=== PATIENT | female | born 1945 | race Caucasian/White ===

== ENCOUNTER → 2018-02-02 | Outpatient (CLI) | payer MEDICARE, MEDICAID ==
[~2018-02-02] MED LIST: ALPR0.5T8 PO; CHOL2000 PO; DDAV2 PO; DOCU250C28 PO; ENTA200 PO; ESCI20TA PO; GABA-531 PO; MULT-1203 PO; RANI150T7 PO; SENN-175 PO; [UNRECOGNIZED DRUG - CODE] PO
[2018-02-02 11:10] VITALS: BP 88/45
== END | disposition home or self-care (01) ==
LOC: SRCNTR 10:57
PROVIDERS: ATTEND Internal Medicine Critical Care Medicine
DX: J96.11 Chronic respiratory failure with hypoxia (principal); G20 Parkinson's disease; F32.9 Major depressive disorder, single episode, unspecified; I10 Essential (primary) hypertension; E03.9 Hypothyroidism, unspecified; K21.9 Gastro-esophageal reflux disease without esophagitis; M19.90 Unspecified osteoarthritis, unspecified site
CPT/HCPCS: G0463

== ENCOUNTER 2018-04-11 01:40 | Inpatient (IN) | payer MEDICAID, MEDICARE ==
[~2018-04-11] VITALS: Ht 162.6 cm; Wt 87.1 kg
[2018-04-11] MEDS ORDERED: IPRATROPIUM BROMIDE 0.5 MG/2.5 ML NEB SOLUTION NEB ONE (01:45)
[2018-04-11] MEDS ORDERED: AZITHROMYCIN 500 MG/NS 250 ML IV ONE (01:45)
[2018-04-11] MEDS ORDERED: ALBUTEROL SULFATE 2.5 MG/0.5 ML NEB SOLUTION NEB ONE (01:45)
[2018-04-11] MEDS ORDERED: ACETAMINOPHEN 1000 MG/ISO-OSM 100 ML IV ONE (01:45)
[2018-04-11] MEDS ORDERED: CefTRIAXone SODIUM 1 GM in DEXTROSE 5%-WATER 10 ML IV ONE (01:45)
[2018-04-11] MEDS ORDERED: LEVO25TA9 PO (01:58)
[2018-04-11] MEDS ORDERED: SERT100T12 PO (01:58)
[2018-04-11] MEDS ORDERED: AUD NEB (01:58)
[2018-04-11] MEDS ORDERED: LIDO700A30 TP (01:58)
[2018-04-11] MEDS ORDERED: PANT40TA25 PO (01:58)
[2018-04-11] MEDS ORDERED: ZOLP10TA7 PO (01:58)
[2018-04-11] MEDS ORDERED: FLUT100B IH (01:58)
[2018-04-11] MEDS ORDERED: PIMA17TA PO (01:58)
[2018-04-11] MEDS ORDERED: GABA-533 PO (01:58)
[2018-04-11] MEDS ORDERED: LACT1CAP38 PO (01:58)
[2018-04-11] MEDS ORDERED: LAMO100 PO (01:58)
[2018-04-11] MEDS ORDERED: SODIUM CHLORIDE 0.9% 1,000 ML IV ONE (02:15)
[2018-04-11 02:20] LABS: BASOPHILS % (AUTO) 0.4 % (0.0-2.0); HEMOGLOBIN 11.9 g/dL (12.0-16.0); LYMPHOCYTES # (AUTO) 0.3 K/uL (1.0-4.8); MEAN CORPUSCULAR HGB CONC 33.1 G/dL (31.0-37.0); MEAN CORPUSCULAR VOLUME 85 fL (80-100); MONOCYTES # (AUTO) 0.2 K/uL (0.1-1.0); MONOCYTES % (AUTO) 4.7 % (2.0-9.0); NEUTROPHILS # (AUTO) 3.1 K/uL (1.8-7.7); NEUTROPHILS % (AUTO) 84.9 % (40.0-70.0); PLATELET COUNT (AUTO) 149 K/uL (150-450); RED BLOOD CELL COUNT(AUTO) 4.25 MIL/uL (4.00-5.20)
[2018-04-11 02:31] LABS: ANION GAP 6 mmol/L (8-16); CALCIUM, TOTAL 8.7 mg/dL (8.8-10.5); CARBON DIOXIDE 32 mmol/L (22-29); CHLORIDE 103 mmol/L (98-107); CREATININE 1.05 mg/dL (0.60-1.30); GLOMERULAR FILTR. RATE CALC 51 mL/min (>60); GLUCOSE,RANDOM 128 mg/dL (70-110); POTASSIUM 3.4 mmol/L (3.5-5.1); SODIUM SERUM 141 mmol/L (136-145); UREA NITROGEN, BLOOD 26 mg/dL (7-18)
[2018-04-11 02:38] LABS: ALANINE AMINOTRANSFERASE 14 U/L (12-78); ALKALINE PHOSPHATASE 78 U/L (46-116); ASPARTATE AMINOTRANSFERASE 17 U/L (15-37); BILIRUBIN,TOTAL 0.6 mg/dL (0.1-1.0); CREATINE KINASE, TOTAL 67 U/L (26-192); TOTAL PROTEIN, SERUM 6.6 g/dL (6.4-8.2)
[2018-04-11 02:40] LABS: APPEARANCE,URINE SLIGHTLY CLOUDY (CLEAR); BILIRUBIN,URINE NEGATIVE (NEGATIVE); GLUCOSE, URINE (UA) NEGATIVE (NEGATIVE); KETONES,URINE TRACE mg/dL (NEGATIVE); OCCULT BLOOD,URINE NEGATIVE (NEGATIVE); PROTEIN,URINE NEGATIVE (NEGATIVE)
[2018-04-11 02:41] LABS: LEUKOCYTE ESTERASE ,URINE NEGATIVE (NEGATIVE); NITRATE,URINE POSITIVE (NEGATIVE); UROBILINOGEN,URINE 0.2 mg/dL (<=1.0)
[2018-04-11 02:44] LABS: B-TYPE NATRIURETIC PEPTIDE 26 pg/mL (0-100)
[2018-04-11 03:23] LABS: BACTERIA,URINE Moderate /HPF (None Seen); RBC,URINE 0-2 /HPF (0-2)
[2018-04-11 03:24] LABS: SQUAMOUS EPITHELIAL CELL,UR Moderate /LPF (None Seen)
[2018-04-11 06:35] VITALS: BP 110/71
[2018-04-11 07:50] VITALS: BP 113/70
[2018-04-11] MEDS ORDERED: LEVOTHYROXINE SODIUM 25 MCG TABLET PO SCH (10:45)
[2018-04-11] MEDS ORDERED: IPRATROPIUM BROMIDE 0.5 MG/2.5 ML NEB SOLUTION NEB SCH (10:45)
[2018-04-11] MEDS ORDERED: PANTOPRAZOLE SODIUM 40 MG DR TABLET PO SCH (10:45)
[2018-04-11] MEDS ORDERED: ZOLPIDEM TARTRATE 5 MG TABLET PO PRN (10:45)
[2018-04-11] MEDS ORDERED: ONDANSETRON HCL 4 MG/2 ML VIAL IVP PRN (10:45)
[2018-04-11] MEDS ORDERED: 0.9% SODIUM CHLORIDE 10 ML SYRINGE IVP PRN (10:45)
[2018-04-11] MEDS: LamoTRIgine 100 MG TABLET PO SCH ×2 (10:45→23:53)
[2018-04-11] MEDS ORDERED: ALBUTEROL SULFATE 2.5 MG/0.5 ML NEB SOLUTION NEB SCH ×2 (10:45→13:00)
[2018-04-11] MEDS: IPRATROPIUM BROMIDE 0.5 MG/2.5 ML NEB SOLUTION NEB PRN (11:17)
[2018-04-11] MEDS: ALBUTEROL SULFATE 2.5 MG/0.5 ML NEB SOLUTION NEB PRN (11:17)
[2018-04-11 11:22] VITALS: BP 131/81
[2018-04-11] MEDS: HEPARIN SODIUM,PORCINE 5,000 UNITS/ML VIAL SQ SCH ×3 (11:25→23:53)
[2018-04-11] MEDS: ALPRAZolam 0.5 MG TABLET PO SCH ×2 (11:36→21:04)
[2018-04-11] MEDS: SENNA 187 MG TABLET PO SCH (11:36)
[2018-04-11] MEDS: DOCUSATE SODIUM 100 MG CAPSULE PO SCH ×2 (11:36→21:04)
[2018-04-11] MEDS: LIDOCAINE HCL 5% TRANSDERMAL PATCH TD SCH (13:11)
[2018-04-11] MEDS: IPRATROPIUM BROMIDE 0.5 MG/2.5 ML NEB SOLUTION NEB SCH ×2 (14:04→20:11)
[2018-04-11] MEDS: ALBUTEROL SULFATE 2.5 MG/0.5 ML NEB SOLUTION NEB SCH ×2 (14:04→20:11)
[2018-04-11] MEDS: SERTRALINE HCL 100 MG TABLET PO SCH (14:26)
[2018-04-11] MEDS: FLUTICASONE FUROATE 100 MCG/INH INHALER [14] IH SCH (14:27)
[2018-04-11 15:28] VITALS: BP 135/86
[2018-04-11] MEDS ORDERED: POTASSIUM CHLORIDE 20 MEQ ER TABLET PO PRN (15:45)
[2018-04-11] MEDS: LEVOTHYROXINE SODIUM 25 MCG TABLET PO SCH (15:51)
[2018-04-11] MEDS: GABAPENTIN 400 MG CAPSULE PO SCH ×2 (15:51→21:04)
[2018-04-11] MEDS: ACETAMINOPHEN 325 MG TABLET PO PRN (15:51)
[2018-04-11] MEDS ORDERED: CARBIDOPA/LEVODOPA 50-200 MG ER TABLET PO SCH (16:00)
[2018-04-11] MEDS: SODIUM CHLORIDE 0.9% 1,000 ML IV SCH (16:04)
[2018-04-11] MEDS: CARBIDOPA/LEVODOPA 25-100 MG ER TABLET PO SCH ×2 (17:38→21:04)
[2018-04-11 19:32] VITALS: BP 117/65
[2018-04-11] MEDS ORDERED: DOCUSATE SODIUM 250 MG CAPSULE PO SCH (21:00)
[2018-04-11] MEDS: -LIDODERM PATCH NOTE- MISC SCH (21:00)
[2018-04-11] MEDS: CefTRIAXone SODIUM 1 GM in DEXTROSE 5%-WATER 10 ML IV SCH (21:04)
[2018-04-11] MEDS: ZOLPIDEM TARTRATE 10 MG TABLET PO SCH (21:04)
[2018-04-12] VITALS (7 sets, daily range): BP systolic 93–139; BP diastolic 52–136
[2018-04-12] MEDS: IPRATROPIUM BROMIDE 0.5 MG/2.5 ML NEB SOLUTION NEB PRN (00:58)
[2018-04-12] MEDS: ALBUTEROL SULFATE 2.5 MG/0.5 ML NEB SOLUTION NEB PRN (00:58)
[2018-04-12] MEDS: IPRATROPIUM BROMIDE 0.5 MG/2.5 ML NEB SOLUTION NEB SCH ×4 (01:36→19:37)
[2018-04-12] MEDS: ALBUTEROL SULFATE 2.5 MG/0.5 ML NEB SOLUTION NEB SCH ×4 (01:36→19:37)
[2018-04-12] MEDS: AZITHROMYCIN 500 MG/NS 250 ML IV SCH (03:06)
[2018-04-12] MEDS: LEVOTHYROXINE SODIUM 25 MCG TABLET PO SCH (05:38)
[2018-04-12] MEDS: HEPARIN SODIUM,PORCINE 5,000 UNITS/ML VIAL SQ SCH ×2 (08:08→16:06)
[2018-04-12] MEDS: FLUTICASONE FUROATE 100 MCG/INH INHALER [14] IH SCH (08:10)
[2018-04-12] MEDS: LIDOCAINE HCL 5% TRANSDERMAL PATCH TD SCH (08:10)
[2018-04-12] MEDS: SODIUM CHLORIDE 0.9% 1,000 ML IV SCH (08:10)
[2018-04-12] MEDS: CARBIDOPA/LEVODOPA 25-100 MG ER TABLET PO SCH ×3 (08:10→20:54)
[2018-04-12] MEDS: SERTRALINE HCL 100 MG TABLET PO SCH (08:10)
[2018-04-12] MEDS: GABAPENTIN 400 MG CAPSULE PO SCH ×3 (08:11→20:53)
[2018-04-12] MEDS: DOCUSATE SODIUM 100 MG CAPSULE PO SCH ×2 (08:11→20:53)
[2018-04-12] MEDS: LamoTRIgine 100 MG TABLET PO SCH ×2 (08:11→20:57)
[2018-04-12] MEDS: PANTOPRAZOLE SODIUM 40 MG DR TABLET PO SCH (08:11)
[2018-04-12] MEDS: SENNA 187 MG TABLET PO SCH (08:11)
[2018-04-12] MEDS: ALPRAZolam 0.5 MG TABLET PO SCH ×2 (09:10→20:54)
[2018-04-12] MEDS: CefTRIAXone SODIUM 1 GM in DEXTROSE 5%-WATER 10 ML IV SCH (20:54)
[2018-04-12] MEDS: ZOLPIDEM TARTRATE 10 MG TABLET PO SCH (20:57)
[2018-04-12] MEDS: -LIDODERM PATCH NOTE- MISC SCH (21:00)
[2018-04-13] MEDS: HEPARIN SODIUM,PORCINE 5,000 UNITS/ML VIAL SQ SCH ×3 (00:27→17:48)
[2018-04-13] MEDS: AZITHROMYCIN 500 MG/NS 250 ML IV SCH (00:27)
[2018-04-13] MEDS: SODIUM CHLORIDE 0.9% 1,000 ML IV SCH ×2 (00:27→17:53)
[2018-04-13] MEDS: IPRATROPIUM BROMIDE 0.5 MG/2.5 ML NEB SOLUTION NEB SCH ×4 (01:41→19:14)
[2018-04-13] MEDS: ALBUTEROL SULFATE 2.5 MG/0.5 ML NEB SOLUTION NEB SCH ×4 (01:41→19:14)
[2018-04-13] MEDS ORDERED: PROPOFOL 1000 MG/ISO-OSM 100 ML IV PRN (03:30)
[2018-04-13] MEDS ORDERED: SUCCINYLCHOLINE CHLORIDE 20 MG/ML 10 ML VIAL ONE (03:32)
[2018-04-13] MEDS ORDERED: RAPID SEQUENCE KIT [RSI] 1 EACH KIT ONE ×2 (03:32→07:34)
[2018-04-13 04:00] VITALS: BP 109/74
[2018-04-13] MEDS ORDERED: SODIUM CHLORIDE 0.9% 250 ML IV ONE (04:14)
[2018-04-13 05:12] LABS: ABG A-A DIFF O2 276.1 mmHg (10-20.0); ABG BASE EXCESS -0.7 mmol/L (-2.0-3.0); ABG METHEMOGLOBIN 0.3 % (0.0-1.5); ABG OXYGEN CONTENT 14.6 mL/dL (15.0-23.0); ABG OXYGEN SATURATION 98.2 % (95.0-98.0); ABG OXYHEMOGLOBIN 96.9 % (94.0-100.0); ABG PCO2 42 mmHg (35-45); ABG PH 7.384 (7.35-7.450); ABG TOTAL HEMOGLOBIN 10.6 G/dL (12.0-18.0); PO2, ARTERIAL BG 105.7 mmHg (75.0-83.0); SOURCE, BLOOD GAS ARTERIAL; TEMPERATURE, FAHRENHEIT, BG 98.6 FAHREN (96.0-98.6)
[2018-04-13 05:13] LABS: O2 DEVICE,BLOOD GAS VENTILATOR (ROOM AIR); PEEP,BG 5 cm H2O; SITE, BLOOD GAS LFT RADIAL; VT, ABG 500 ml
[2018-04-13] MEDS: LEVOTHYROXINE SODIUM 25 MCG TABLET PO SCH (06:30)
[2018-04-13 07:23] LABS: ANION GAP 7 mmol/L (8-16); CARBON DIOXIDE 29 mmol/L (22-29); CHLORIDE 108 mmol/L (98-107); CREATININE 0.76 mg/dL (0.60-1.30); GLOMERULAR FILTR. RATE CALC > 60 mL/min (>60); GLUCOSE,RANDOM 101 mg/dL (70-110); POTASSIUM 3.8 mmol/L (3.5-5.1); SODIUM SERUM 144 mmol/L (136-145); UREA NITROGEN, BLOOD 18 mg/dL (7-18)
[2018-04-13 08:00] VITALS: BP 134/89
[2018-04-13] MEDS: FLUTICASONE FUROATE 100 MCG/INH INHALER [14] IH SCH (08:46)
[2018-04-13] MEDS: LIDOCAINE HCL 5% TRANSDERMAL PATCH TD SCH (08:50)
[2018-04-13] MEDS: DOCUSATE SODIUM 100 MG CAPSULE PO SCH ×2 (09:00→20:30)
[2018-04-13] MEDS: ALPRAZolam 0.5 MG TABLET PO SCH ×3 (09:00→20:31)
[2018-04-13] MEDS: LamoTRIgine 100 MG TABLET PO SCH ×2 (09:00→20:30)
[2018-04-13] MEDS: SENNA 187 MG TABLET PO SCH (09:00)
[2018-04-13] MEDS: GABAPENTIN 400 MG CAPSULE PO SCH ×3 (09:00→20:31)
[2018-04-13] MEDS: SERTRALINE HCL 100 MG TABLET PO SCH ×2 (09:00→12:47)
[2018-04-13] MEDS: CARBIDOPA/LEVODOPA 25-100 MG ER TABLET PO SCH ×3 (09:00→20:31)
[2018-04-13] MEDS: PANTOPRAZOLE SODIUM 40 MG DR TABLET PO SCH (09:00)
[2018-04-13 09:29] LABS: ABG A-A DIFF O2 135.7 mmHg (10-20.0); ABG BASE EXCESS 1.6 mmol/L (-2.0-3.0); ABG CARBOXYHEMOGLOBIN 0.9 % (0.0-1.5); ABG HCO3 25.8 mmol/L (22.0-26.0); ABG METHEMOGLOBIN 0.3 % (0.0-1.5); ABG OXYGEN CONTENT 14.5 mL/dL (15.0-23.0); ABG OXYGEN SATURATION 94.6 % (95.0-98.0); ABG OXYHEMOGLOBIN 93.5 % (94.0-100.0); ABG PCO2 39 mmHg (35-45); ABG PH 7.442 (7.35-7.450); O2 DEVICE,BLOOD GAS BIPAP (ROOM AIR); PO2, ARTERIAL BG 69.1 mmHg (75.0-83.0); SITE, BLOOD GAS LFT RADIAL; SOURCE, BLOOD GAS ARTERIAL; SPONTANEOUS VT, BG 370 ml; TEMPERATURE, FAHRENHEIT, BG 98.6 FAHREN (96.0-98.6)
[2018-04-13 10:12] LABS: BASOPHILS % (AUTO) 0.5 % (0.0-2.0); HEMATOCRIT 31.4 % (36-46); HEMOGLOBIN 10.6 g/dL (12.0-16.0); LYMPHOCYTES # (AUTO) 0.8 K/uL (1.0-4.8); LYMPHOCYTES % (AUTO) 11.4 % (22.0-44.0); MEAN CORPUSCULAR HEMOGLOBIN 28.7 pg (26.0-34.0); MEAN CORPUSCULAR HGB CONC 33.6 G/dL (31.0-37.0); MEAN CORPUSCULAR VOLUME 85 fL (80-100); MONOCYTES # (AUTO) 0.7 K/uL (0.1-1.0); MONOCYTES % (AUTO) 9.8 % (2.0-9.0); NEUTROPHILS # (AUTO) 5.7 K/uL (1.8-7.7); NEUTROPHILS % (AUTO) 77.3 % (40.0-70.0); PLATELET COUNT (AUTO) 168 K/uL (150-450); RED BLOOD CELL COUNT(AUTO) 3.68 MIL/uL (4.00-5.20); RED CELL DISTRIBUTION WIDTH 17.9 % (11.5-14.5)
[2018-04-13 12:00] VITALS: BP 134/89
[2018-04-13 16:00] VITALS: BP 134/89
[2018-04-13] MEDS ORDERED: ROCURONIUM BROMIDE 10 MG/ML 5 ML VIAL IV ONE (17:27)
[2018-04-13] MEDS ORDERED: ETOMIDATE 2 MG/ML 10 ML VIAL IV ONE (17:27)
[2018-04-13 20:00] VITALS: BP 137/91
[2018-04-13] MEDS: POTASSIUM CHL 10 MEQ/WATER 50 ML IV SCH ×2 (20:00→21:54)
[2018-04-13] MEDS: CefTRIAXone SODIUM 1 GM in DEXTROSE 5%-WATER 10 ML IV SCH (20:29)
[2018-04-13] MEDS: -LIDODERM PATCH NOTE- MISC SCH (20:30)
[2018-04-13] MEDS: ZOLPIDEM TARTRATE 5 MG TABLET PO SCH (20:30)
[2018-04-13] MEDS: ACETAMINOPHEN 325 MG TABLET PO PRN (20:32)
[2018-04-14] VITALS: BP 108/57
[2018-04-14] MEDS: HEPARIN SODIUM,PORCINE 5,000 UNITS/ML VIAL SQ SCH ×3 (00:57→15:28)
[2018-04-14] MEDS: AZITHROMYCIN 500 MG/NS 250 ML IV SCH (01:03)
[2018-04-14] MEDS: IPRATROPIUM BROMIDE 0.5 MG/2.5 ML NEB SOLUTION NEB SCH ×4 (01:10→20:24)
[2018-04-14] MEDS: ALBUTEROL SULFATE 2.5 MG/0.5 ML NEB SOLUTION NEB SCH ×4 (01:11→20:24)
[2018-04-14 04:00] VITALS: BP 100/62
[2018-04-14 05:32] LABS: HEMATOCRIT 29.9 % (36-46); MEAN CORPUSCULAR HEMOGLOBIN 28.5 pg (26.0-34.0); MEAN CORPUSCULAR HGB CONC 33.5 G/dL (31.0-37.0); MEAN CORPUSCULAR VOLUME 85 fL (80-100); PLATELET COUNT (AUTO) 166 K/uL (150-450); RED BLOOD CELL COUNT(AUTO) 3.51 MIL/uL (4.00-5.20); RED CELL DISTRIBUTION WIDTH 17.7 % (11.5-14.5)
[2018-04-14 05:37] LABS: ANION GAP 6 mmol/L (8-16); CARBON DIOXIDE 30 mmol/L (22-29); CHLORIDE 109 mmol/L (98-107); CREATININE 0.67 mg/dL (0.60-1.30); GLOMERULAR FILTR. RATE CALC > 60 mL/min (>60); GLUCOSE,RANDOM 92 mg/dL (70-110); POTASSIUM 3.6 mmol/L (3.5-5.1); SODIUM SERUM 145 mmol/L (136-145); UREA NITROGEN, BLOOD 16 mg/dL (7-18)
[2018-04-14] MEDS: LEVOTHYROXINE SODIUM 25 MCG TABLET PO SCH (05:47)
[2018-04-14 08:53] LABS: BAND NEUTROPHILS % (MANUAL) 2 % (0-5); EOSINOPHILS % (MANUAL) 4 % (1-6); LYMPHOCYTES % (MANUAL) 11 % (22-44); MONOCYTES % (MANUAL) 9 % (2-9); REACTIVE LYMPHOCYTES 1 % (0-0); SEGMENTED NEUTROPHILS % 73 % (40-70)
[2018-04-14] MEDS: GABAPENTIN 400 MG CAPSULE PO SCH ×3 (09:21→20:13)
[2018-04-14] MEDS: PANTOPRAZOLE SODIUM 40 MG DR TABLET PO SCH (09:22)
[2018-04-14] MEDS: DOCUSATE SODIUM 100 MG CAPSULE PO SCH ×2 (09:22→20:13)
[2018-04-14] MEDS: SENNA 187 MG TABLET PO SCH (09:22)
[2018-04-14] MEDS: CARBIDOPA/LEVODOPA 25-100 MG ER TABLET PO SCH ×3 (09:23→20:14)
[2018-04-14] MEDS: LIDOCAINE HCL 5% TRANSDERMAL PATCH TD SCH (09:24)
[2018-04-14] MEDS: ALPRAZolam 0.5 MG TABLET PO SCH ×2 (09:24→20:14)
[2018-04-14] MEDS: LamoTRIgine 100 MG TABLET PO SCH ×2 (09:28→20:13)
[2018-04-14] MEDS: FLUTICASONE FUROATE 100 MCG/INH INHALER [14] IH SCH (09:30)
[2018-04-14] MEDS: SODIUM CHLORIDE 0.9% 1,000 ML IV SCH (12:30)
[2018-04-14 12:57] VITALS: BP 140/98
[2018-04-14 15:20] VITALS: BP 154/116
[2018-04-14] MEDS: ZOLPIDEM TARTRATE 5 MG TABLET PO SCH (20:13)
[2018-04-14] MEDS: CefTRIAXone SODIUM 1 GM in DEXTROSE 5%-WATER 10 ML IV SCH (20:14)
[2018-04-14 20:17] VITALS: BP 141/95
[2018-04-14] MEDS: -LIDODERM PATCH NOTE- MISC SCH (20:42)
[2018-04-14 23:42] VITALS: BP 132/92
[2018-04-15] MEDS: AZITHROMYCIN 500 MG/NS 250 ML IV SCH (01:20)
[2018-04-15] MEDS: ALBUTEROL SULFATE 2.5 MG/0.5 ML NEB SOLUTION NEB SCH ×4 (01:54→20:08)
[2018-04-15] MEDS: IPRATROPIUM BROMIDE 0.5 MG/2.5 ML NEB SOLUTION NEB SCH ×4 (01:54→20:09)
[2018-04-15 04:52] VITALS: BP 112/69
[2018-04-15] MEDS: LEVOTHYROXINE SODIUM 25 MCG TABLET PO SCH (06:02)
[2018-04-15 07:23] VITALS: BP 136/93
[2018-04-15] MEDS: SODIUM CHLORIDE 0.9% 1,000 ML IV SCH ×2 (09:19→23:46)
[2018-04-15] MEDS: DOCUSATE SODIUM 100 MG CAPSULE PO SCH ×2 (09:20→20:32)
[2018-04-15] MEDS: LamoTRIgine 100 MG TABLET PO SCH ×2 (09:23→20:33)
[2018-04-15] MEDS: ALPRAZolam 0.5 MG TABLET PO SCH ×2 (09:23→20:33)
[2018-04-15] MEDS: CARBIDOPA/LEVODOPA 25-100 MG ER TABLET PO SCH ×3 (09:24→20:34)
[2018-04-15] MEDS: PANTOPRAZOLE SODIUM 40 MG DR TABLET PO SCH (09:25)
[2018-04-15] MEDS: SENNA 187 MG TABLET PO SCH (09:25)
[2018-04-15] MEDS: SERTRALINE HCL 100 MG TABLET PO SCH (09:26)
[2018-04-15] MEDS: HEPARIN SODIUM,PORCINE 5,000 UNITS/ML VIAL SQ SCH ×4 (09:28→23:47)
[2018-04-15] MEDS: LIDOCAINE HCL 5% TRANSDERMAL PATCH TD SCH (09:29)
[2018-04-15] MEDS ORDERED: VANCOMYCIN HCL 1.25 GM in DEXTROSE 5%-WATER 250 ML IV ONE (10:00)
[2018-04-15] MEDS: LACTOBAC ACID/BULG/BIFID/THERM TABLET PO SCH ×2 (11:07→20:32)
[2018-04-15 11:45] VITALS: BP 124/94
[2018-04-15] MEDS: FLUTICASONE FUROATE 100 MCG/INH INHALER [14] IH SCH (13:44)
[2018-04-15 16:03] VITALS: BP 154/93
[2018-04-15] MEDS: GABAPENTIN 300 MG CAPSULE PO SCH ×2 (16:37→20:33)
[2018-04-15] MEDS ORDERED: BUDESONIDE 0.5 MG/2 ML NEB SOLUTION NEB PRN (17:00)
[2018-04-15] MEDS ORDERED: BUDESONIDE 0.5 MG/2 ML NEB SOLUTION NEB ONE (17:08)
[2018-04-15 17:41] LABS: ABG A-A DIFF O2 108.4 mmHg (10-20.0); ABG BASE EXCESS -0.3 mmol/L (-2.0-3.0); ABG CARBOXYHEMOGLOBIN 0.7 % (0.0-1.5); ABG HCO3 24.3 mmol/L (22.0-26.0); ABG METHEMOGLOBIN 0.3 % (0.0-1.5); ABG OXYGEN CONTENT 14.1 mL/dL (15.0-23.0); ABG OXYGEN SATURATION 95.3 % (95.0-98.0); ABG OXYHEMOGLOBIN 94.3 % (94.0-100.0); ABG PCO2 38 mmHg (35-45); ABG TOTAL HEMOGLOBIN 10.6 G/dL (12.0-18.0); PO2, ARTERIAL BG 75.5 mmHg (75.0-83.0); SOURCE, BLOOD GAS ARTERIAL
[2018-04-15 17:43] LABS: O2 DEVICE,BLOOD GAS BIPAP (ROOM AIR); SITE, BLOOD GAS RT RADIAL
[2018-04-15 19:41] VITALS: BP 135/82
[2018-04-15] MEDS: VANCOMYCIN HCL 1 GM/D5% WATER 200 ML IV SCH (20:32)
[2018-04-15] MEDS: CefTRIAXone SODIUM 1 GM in DEXTROSE 5%-WATER 10 ML IV SCH (20:32)
[2018-04-15] MEDS: -LIDODERM PATCH NOTE- MISC SCH (20:32)
[2018-04-15] MEDS ORDERED: METOPROLOL TARTRATE 5 MG/5 ML VIAL IVP PRN (23:00)
[2018-04-16 00:08] VITALS: BP 112/72
[2018-04-16] MEDS: IPRATROPIUM BROMIDE 0.5 MG/2.5 ML NEB SOLUTION NEB SCH ×4 (02:16→20:00)
[2018-04-16] MEDS: ALBUTEROL SULFATE 2.5 MG/0.5 ML NEB SOLUTION NEB SCH ×4 (02:16→20:00)
[2018-04-16 04:21] VITALS: BP 107/62
[2018-04-16] MEDS: LEVOTHYROXINE SODIUM 25 MCG TABLET PO SCH (05:55)
[2018-04-16 07:19] VITALS: BP 158/98
[2018-04-16 07:55] LABS: ANION GAP 9 mmol/L (8-16); CALCIUM, TOTAL 8.2 mg/dL (8.8-10.5); CARBON DIOXIDE 28 mmol/L (22-29); CHLORIDE 109 mmol/L (98-107); CREATININE 0.61 mg/dL (0.60-1.30); GLOMERULAR FILTR. RATE CALC > 60 mL/min (>60); GLUCOSE,RANDOM 84 mg/dL (70-110); POTASSIUM 3.4 mmol/L (3.5-5.1); SODIUM SERUM 146 mmol/L (136-145); UREA NITROGEN, BLOOD 15 mg/dL (7-18)
[2018-04-16] MEDS: FLUTICASONE FUROATE 100 MCG/INH INHALER [14] IH SCH (08:37)
[2018-04-16] MEDS: HEPARIN SODIUM,PORCINE 5,000 UNITS/ML VIAL SQ SCH ×2 (08:38→16:21)
[2018-04-16] MEDS: CARBIDOPA/LEVODOPA 25-100 MG ER TABLET PO SCH ×2 (08:38→16:00)
[2018-04-16] MEDS: VANCOMYCIN HCL 1 GM/D5% WATER 200 ML IV SCH (08:38)
[2018-04-16] MEDS: ALPRAZolam 0.5 MG TABLET PO SCH (08:38)
[2018-04-16] MEDS: SENNA 187 MG TABLET PO SCH (08:38)
[2018-04-16] MEDS: DOCUSATE SODIUM 100 MG CAPSULE PO SCH (08:38)
[2018-04-16] MEDS: GABAPENTIN 300 MG CAPSULE PO SCH (08:39)
[2018-04-16] MEDS: LamoTRIgine 100 MG TABLET PO SCH (08:39)
[2018-04-16] MEDS: SERTRALINE HCL 100 MG TABLET PO SCH (08:39)
[2018-04-16] MEDS: PANTOPRAZOLE SODIUM 40 MG DR TABLET PO SCH (08:40)
[2018-04-16] MEDS: LACTOBAC ACID/BULG/BIFID/THERM TABLET PO SCH (08:47)
[2018-04-16] MEDS: LIDOCAINE HCL 5% TRANSDERMAL PATCH TD SCH (09:00)
[2018-04-16 10:47] LABS: ABG A-A DIFF O2 130.5 mmHg (10-20.0); ABG BASE EXCESS -0.2 mmol/L (-2.0-3.0); ABG CARBOXYHEMOGLOBIN 1.4 % (0.0-1.5); ABG HCO3 24.5 mmol/L (22.0-26.0); ABG METHEMOGLOBIN 0.4 % (0.0-1.5); ABG OXYGEN CONTENT 13.7 mL/dL (15.0-23.0); ABG OXYHEMOGLOBIN 94.3 % (94.0-100.0); ABG PCO2 36 mmHg (35-45); ABG PH 7.443 (7.35-7.450); ABG TOTAL HEMOGLOBIN 10.3 G/dL (12.0-18.0); O2 DEVICE,BLOOD GAS BIPAP (ROOM AIR); PO2, ARTERIAL BG 77.6 mmHg (75.0-83.0); SITE, BLOOD GAS LFT RADIAL; SOURCE, BLOOD GAS ARTERIAL; TEMPERATURE, FAHRENHEIT, BG 98.6 FAHREN (96.0-98.6)
[2018-04-16 11:44] VITALS: BP 151/94
[2018-04-16] MEDS ORDERED: ALPR0.5T8 PO (12:30)
[2018-04-16] MEDS ORDERED: CARB1TAB35 PO (12:35)
[2018-04-16] MEDS ORDERED: CEFX1I IM (12:39)
[2018-04-16] MEDS ORDERED: CEFX1I IV (12:40)
[2018-04-16] MEDS ORDERED: DSS100 PO (12:41)
[2018-04-16] MEDS ORDERED: HEPA500041 SQ (12:44)
[2018-04-16] MEDS ORDERED: IPRNEB NEB (12:54)
[2018-04-16] MEDS ORDERED: VANC1IV IV (12:56)
[2018-04-16] MEDS ORDERED: ACET-2247 PO (12:58)
[2018-04-16] MEDS ORDERED: AUD NEB (12:59)
[2018-04-16] MEDS ORDERED: BUDE0.5A3 NEB (13:00)
[2018-04-16] MEDS ORDERED: METO5I IVP (13:02)
[2018-04-16] MEDS ORDERED: ONDA4 IVP (13:04)
[2018-04-16] MEDS ORDERED: NS5H IVP (13:06)
[2018-04-16 15:21] VITALS: BP 119/69
== END 2018-04-16 20:20 | DRG 871 ==
LOC: EMS 01:41 → 5N 06:03 → ICU 04-13 03:35 → 5S 04-14 12:40
PROVIDERS: ADMIT Internal Medicine; ATTEND Internal Medicine
PROC: 0T9B70Z Drainage of Bladder with Drainage Device, Via Natural or Artificial Opening (ICD-10-PCS; 2018-04-11)
PROC: 5A1935Z Respiratory Ventilation, Less than 24 Consecutive Hours (ICD-10-PCS; principal; 2018-04-13)
PROC: 0BH17EZ Insertion of Endotracheal Airway into Trachea, Via Natural or Artificial Opening (ICD-10-PCS; 2018-04-13)
PROC: 5A09357 Assistance with Respiratory Ventilation, Less than 24 Consecutive Hours, Continuous Positive Airway Pressure (ICD-10-PCS; 2018-04-13)
PROC: 5A09457 Assistance with Respiratory Ventilation, 24-96 Consecutive Hours, Continuous Positive Airway Pressure (ICD-10-PCS; 2018-04-15)
DX: A41.9 Sepsis, unspecified organism (principal); J96.01 Acute respiratory failure with hypoxia; J69.0 Pneumonitis due to inhalation of food and vomit; E43 Unspecified severe protein-calorie malnutrition; N39.0 Urinary tract infection, site not specified; G40.909 Epilepsy, unspecified, not intractable, without status epilepticus; G20 Parkinson's disease; J44.9 Chronic obstructive pulmonary disease, unspecified; R62.7 Adult failure to thrive; K21.9 Gastro-esophageal reflux disease without esophagitis; E03.9 Hypothyroidism, unspecified; F41.9 Anxiety disorder, unspecified; I10 Essential (primary) hypertension; E78.00 Pure hypercholesterolemia, unspecified; F32.9 Major depressive disorder, single episode, unspecified; Z88.2 Allergy status to sulfonamides; Z79.899 Other long term (current) drug therapy; Z22.322 Carrier or suspected carrier of Methicillin resistant Staphylococcus aureus; Z82.49 Family history of ischemic heart disease and other diseases of the circulatory system; Z78.1 Physical restraint status
CPT/HCPCS: 51702; 71250; 82805; 83735; 84132; 85007; 87040; 87070; 87081; 87086; 87205; 92526; 92610; 93005; 93306; 94002; 94640; 94660; 94799; 96365; 96368; 99291; J0131; J0330; J0456; J0696; J1644; J2704; J3370; J3480; J3490; J7030; J7050; J7060